=== PATIENT | female | born 1990 | race Caucasian/White ===

== ENCOUNTER 2019-08-01 18:58 | Outpatient (CLI) | payer OTHER, SELFPAY ==
[2019-08-01 19:34] LABS: Influenza Control Valid (Valid)
== END 2019-08-01 18:59 | disposition home or self-care (01) ==
LOC: CHSLAB 19:05
PROVIDERS: PCP Family Medicine; Visit Provider Family Medicine
DX: J02.9 Acute pharyngitis, unspecified (principal); R05 Cough
CPT/HCPCS: 87081; 87804; 87880

== ENCOUNTER 2020-01-10 09:38 | Emergency (ER) | payer OTHER, SELFPAY ==
--- NOTE | ~2020-01-10 | US_ITS ---
EXAMINATION: US pelvic complete w TV DATE: 01/10/2020 11:09 INDICATION: Pelvic pain and pressure, history of each ureter insertion TECHNIQUE: Multiple transabdominal and endovaginal sonographic images of the pelvis were obtained. COMPARISON: None. FINDINGS: The uterus measures 8.9 x 5.4 x 4.9 cm. The endometrial complex measures 7 mm. The right ov carleen measures 2.1 x 1.9 x 1.1 cm. The left ovary measures 2.8 x 1.3 x 1.6 cm. There is normal vascular flow in the ovaries. There is no free fluid in the pelvis. IMPRESSION: 1. No sonographic correlate for the patient's symptoms. Reviewed, dictated and finalized at location B.
--- NOTE | 2020-01-10 09:57 | ED.ABDPAIN ---
HPI - Abdominal Pain General Chief Complaint: Abdominal Pain Stated Complaint: abdominal Pain Time Seen by Provider: 01/10/20 09:57 Source: patient Mode of arrival: ambulatory Limitations: no limitations History of Present Illness HPI narrative: Patient is a 29-year-old who presents for evaluation of bilateral lower pelvic pain. Pain is reportedly sharp, stabbing in nature in the right and left lower pelvis. Patient states she started her menstrual cycle this morning but typically does not have painful cycles. She has a history of ectopic which was treated with medication and did not require any surgical intervention. Patient also has a history of Esher procedure 8 years ago at the [facility] [place]. Patient denies any recent pelvic trauma, recent intercourse, no history of sexually transmitted infection. No fever, chills, nausea vomiting or back pain. No dysuria. Related Data Allergies Allergy/AdvReac Type Severity Reaction Status Date / Time adhesive Allergy Severe RASH AND Verified 01/10/20 10:02 SWELLING WITH PLASTIC TAPE latex Allergy Unknown Hives Verified 01/10/20 10:02 Penicillins Allergy Unknown Hives Verified 01/10/20 10:02 Review of Systems Review of Systems: Narrative: CONSTITUTIONAL: Denies fever CARDIOVASCULAR: Denies chest pain RESPIRATORY: Denies cough or dyspnea. GASTROINTESTINAL: Denies abdominal pain, reports lower pelvic pain SKIN: Denies rash MUSCULOSKELETAL: Denies back pain NEUROLOGIC: Denies headache PMFSH Past Medical History Medical History Ectopic Encounter for Essure implantation Family History Family History (Updated 01/24/12 @ 10:49 by DOCTOR UNKNOWN) Other Asthma Diabetes mellitus Hypertension Social History Social History Alcohol intake: never Gender identity (if verbalized by the patient): Female Exam Narrative: Exam Narrative: GENERAL: Awake, alert, conversant HEAD: Normocephalic, atraumatic. EYES: PERRLA and EOMI. ENT: Nares clear, no rhinorrhea or epistaxis. Mucous membranes moist. NECK: Supple. CHEST: No respiratory distress, breathing even and non labored HEART: Regular rate, sinus rhythm ABDOMEN:Non distended, tender in left lower pelvis, right pelvis, no rebound, no guarding /Pelvic: Labia majora and minora normal without lesions. Vagina with scant blood. No cervical motion tenderness. No adnexal tenderness or fullness bilaterally. No mucoid or purulent discharge present. EXTREMITIES: Normal range of motion. No edema. SKIN: Warm, dry, no rash. NEURO:No focal deficits. Alert and oriented x3 Course Vital Signs Vital signs: Vital Signs Temperature 37.1 C 01/10/20 09:58 Pulse Rate 81 01/10/20 09:58 Respiratory Rate 17 01/10/20 09:58 Blood Pressure 124/79 01/10/20 09:58 Pulse Oximetry 100 01/10/20 09:58 Temperature 37.1 C 01/10/20 09:58 Pulse Rate 81 01/10/20 09:58 Respiratory Rate 17 01/10/20 09:58 Blood Pressure 124/79 01/10/20 09:58 Pulse Oximetry 100 01/10/20 09:58 MDM - Abdominal Pain MDM Narrative Medical decision making narrative: Patient presented with lower pelvic pain associated with her menstrual cycle. At the time of assessment, ABCs are intact and vital signs are stable. Most no focal right lower quadrant tenderness, right upper quadrant tenderness, no guarding or peritoneal signs on exam. No signs of appendicitis clinically as patient is afebrile, no tachycardia, negative McBurney's point tenderness. Laboratory results are reassuring. Urinalysis is not consistent with urinary tract infection. Pelvic ultrasound shows no evidence of ovarian torsion, ectopic or cysts. Patient felt improved following anti-inflammatory treatment. She decision-making occurred with patient repeat abdominal exam is quite benign. I offered her a CT scan to
[2020-01-10 09:58] VITALS: BP 124/79; PULSE 81; RESP 17; TEMP 37.1; O2SAT 100
[2020-01-10 10:02] LABS: Basophils Absolute Auto 0.1 K/mm3 (0.0-0.1); Basophils Percent Auto 0.6 % (0.2-1.2); Eosinophils Absolute Auto 0.1 K/mm3 (0-0.3); Eosinophils Percent Auto 1.2 % (0-4.4); Hematocrit 40.9 % (37.0-47.0); Hemoglobin 13.7 g/dL (12.0-15.0); Immature Granulocyte Absolute 0.02 K/mm3 (0.00-0.031); Immature Granulocyte Percent A 0.2 % (0-0.5); Lymphocytes Absolute Auto 2.14 K/mm3 (0.9-3.2); Mean Corpuscular HGB Conc 33.5 g/dl (32-36); Mean Corpuscular Hemoglobin 28.1 pg (26-34); Mean Corpuscular Volume 83.8 fl (80-100); Mean Platelet Volume 10.8 fl (7.4-10.4); Monocytes Absolute Auto 0.6 K/mm3 (0.1-0.6); Monocytes Percent Auto 6.6 % (2.6-8.5); Neutrophils Absolute Auto 6.4 K/mm3 (1.3-6.7); Neutrophils Percent Auto 68.4 % (45.5-73.1); Platelet Count Result 260 k/mm3 (150-375); Red Blood Count 4.88 M/mm3 (4.2-5.4); Red Cell Distribution Width 12.9 % (11.5-14.5); White Blood Count 9.3 K/mm3 (4.5-10.0)
[2020-01-10 10:09] LABS: Add Urine Microscopic? YES; Appearance Urine Clear (Clear); Bilirubin Urine Negative (Negative); Blood Urine 3+ (Negative); Color Urine Yellow (Yellow); Glucose Urine UA Negative (Negative); Ketones Urine Negative (Negative); Leukocyte Esterase Ur Negative LEU/UL (Negative); Mucus Urine Rare /lpf; Nitrate Urine Negative (Negative); Protein Urine Negative (Negative); RBC Urine >75 /hpf (0-2); Specific Grav Ur 1.024 (1.001-1.035); Squamous Epithelial Cell Urine Moderate /hpf (Few); Urobilinogen Urine Negative mg/dL (<2.0)
[2020-01-10 10:21] LABS: Alanine Aminotransferase 20 U/L (4-35); Albumin Level 4.2 g/dL (3.5-5.1); Alkaline Phosphatase 57 U/L (38-126); Anion Gap 7 mmol/L (8-16); Aspartate Amino Transferase 24 U/L (14-36); Bilirubin,Total 0.4 mg/dL (0.2-1.3); Blood Urea Nitrogen 14 mg/dL (7-17); Carbon Dioxide 23 mmol/L (22-30); Chloride 106 mmol/L (98-107); Estimated CRCL calculation 135 ml/min; Estimated Glomerular Filt Rate > 60; Glucose 103 mg/dL (65-105); Lipase 33 U/L (23-300); Potassium 4.4 mmol/L (3.4-5.0); Sodium 136 mmol/L (137-145)
[2020-01-10] MEDS: SODIUM CHLORIDE 0.9% IV 1,000 ML 999 ML IV CONT (11:05)
[2020-01-10 13:33] VITALS: BP 136/80; PULSE 88; RESP 16; O2SAT 98
== END 2020-01-10 13:00 | disposition home or self-care (01) ==
PROVIDERS: Emergency Provider Emergency Medicine
DX: R10.2 Pelvic and perineal pain (principal)
CPT/HCPCS: 36415; 76830; 76856; 80053; 81001; 81025; 83690; 85025; 96365; 99284; J0131; J1940; J7030

== ENCOUNTER 2020-06-19 10:13 | Outpatient (CLI) | payer OTHER, SELFPAY ==
[2020-06-19 11:32] LABS: Influenza Control Valid (Valid)
[2020-06-19 11:33] LABS: SARS-CoV-2 Ag Negative (Negative)
[2020-06-20 21:58] LABS: SARS-CoV-2 RNA PCR Negative
== END 2020-06-19 10:14 | disposition home or self-care (01) ==
LOC: CHSLAB 10:17
PROVIDERS: PCP Family Medicine; Visit Provider Family Medicine
DX: J00 Acute nasopharyngitis [common cold] (principal); Z20.822 Contact with and (suspected) exposure to COVID-19
CPT/HCPCS: 36415; 87426; 87804; C9803; U0003; U0005

== ENCOUNTER 2020-08-25 14:55 | Outpatient (CLI) | payer OTHER, SELFPAY ==
--- NOTE | ~2020-08-25 | XR_ITS ---
EXAMINATION: XR abdomen obstructive series EXAM DATE: 08/25/2020 16:05 INDICATION: N/V/D/constipation, diffuse abd pain. TECHNIQUE: Frontal upright projection of the upper abdomen, frontal projection of the lower abdomen f or interpretation. Comparison is made to prior examination from 08/22/2015. FINDINGS: Small amount of colonic stool and gas. No small bowel dilation, nonobstructive bowel gas pattern. There are no suspicious calcifications identified. There is no organomegaly suspected. The bones are unremarkable. There is no free intraperitoneal air. The lung bases are clear. Essur e closure devices. IMPRESSION: Unremarkable abdomen x-ray exam. Reviewed, dictated and finalized at location A.
[2020-08-25 15:11] LABS: Basophils Absolute Auto 0.04 K/mm3 (0.00-0.10); Basophils Percent Auto 0.5 % (0.0-1.0); Eosinophils Absolute Auto 0.07 K/mm3 (0.02-0.50); Eosinophils Percent Auto 0.8 % (1.0-6.0); Hematocrit 39.6 % (35.0-49.0); Immature Granulocyte Absolute 0.03 K/mm3 (0.00-0.00); Immature Granulocyte Percent A 0.4 % (0.0-0.0); Lymphocytes Absolute Auto 2.19 K/mm3 (1.10-4.50); Lymphocytes Percent Auto 26.2 % (18.0-42.0); Mean Corpuscular HGB Conc 32.8 g/dL (32.0-36.0); Mean Corpuscular Hemoglobin 27.6 pg (27.0-31.0); Mean Corpuscular Volume 84.1 fL (78.0-102.0); Mean Platelet Volume 10.1 fl (9.2-11.8); Monocytes Absolute Auto 0.49 K/mm3 (0.10-0.90); Monocytes Percent Auto 5.9 % (2.0-11.0); Neutrophils Absolute Auto 5.5 K/mm3 (1.7-7.2); Neutrophils Percent Auto 66.2 % (50.0-70.0); Platelet Count Result 269 K/mm3 (150-420); Red Blood Count 4.71 M/mm3 (4.20-5.40); Red Cell Distribution Width 12.5 % (11.6-14.4); White Blood Count 8.4 K/mm3 (4.8-10.8)
[2020-08-25 15:18] LABS: Add Urine Microscopic? YES; Appearance Urine Clear (Clear); Bilirubin Urine Negative (Negative); Blood Urine 3+ (Negative); Color Urine Yellow (Yellow); Glucose Urine UA Negative (Negative); Ketones Urine Negative (Negative); Leukocyte Esterase Ur Negative (Negative); Nitrate Urine Negative (Negative); Protein Urine Negative (Negative); Specific Grav Ur >= 1.030 (1.010-1.020); Urobilinogen Urine 0.2 mg/dL (0.2-1.0); pH Urine 5.5 (5.0-8.0)
[2020-08-25 15:25] LABS: Bacteria Urine 1+ /hpf; Mucus Urine Moderate /lpf; Squamous Epithelial Cell Urine Moderate /hpf (Few); WBC Urine None seen /hpf (0-3)
[2020-08-25 15:36] LABS: Alanine Aminotransferase 47 U/L (14-59); Albumin Level 3.3 g/dL (3.4-5.0); Alkaline Phosphatase 80 U/L (46-116); Amylase 30 U/L (25-115); Anion Gap 6 mmol/L (8-16); Aspartate Amino Transferase 20 U/L (15-37); Bilirubin,Total 0.4 mg/dL (0.00-1.00); Blood Urea Nitrogen 13 mg/dL (7-18); Carbon Dioxide 28 mmol/L (21-32); Chloride 103 mmol/L (98-108); Estimated Glomerular Filt Rate > 60; Glucose 94 mg/dL (70-99); Lipase 35 U/L (73-393); Osmolality Calculated 284 mOsm/kg (285-295); Potassium 3.8 mmol/L (3.5-5.1); Sodium 137 mmol/L (136-145)
[2020-08-25 15:57] LABS: Thyroid Stimulating Hormone < 0.01 uIU/mL (0.36-3.74)
[2020-08-25 16:29] LABS: Free T4 Free Thyroxine 1.94 ng/dL (0.76-1.46)
== END 2020-08-25 14:56 | disposition home or self-care (01) ==
LOC: CHSLAB 14:56
PROVIDERS: PCP Family Medicine; Visit Provider Family Medicine
DX: R10.9 Unspecified abdominal pain (principal); R94.6 Abnormal results of thyroid function studies
CPT/HCPCS: 36415; 74019; 80053; 81001; 82150; 83690; 84439; 84443; 85025

== ENCOUNTER 2020-08-29 07:43 | Outpatient (CLI) | payer OTHER, SELFPAY ==
--- NOTE | ~2020-08-29 | US_ITS ---
US abdomen complete EXAMINATION: US Abdomen Complete INDICATION: Abdominal pain PROCEDURE: Realtime High Resolution abdomen ultrasound. COMPARISON: No prior studies for comparison FINDINGS: Gallbladder within normal limits. No gallstones, pericholecystic fluid, gallbladder wall t hickening or biliary dilatation. Common bile duct measures 3 mm. Liver echotexture within normal limits without focal mass. Pancreas within normal limits. Pancreati c tail is obscured by bowel gas. Spleen is unremarkeable. Renal echotexture is within normal limits bilaterally without hydronephrosis, contour deforming mass. There is echogenic foci in the right kidn ey which may represent a nonobstructing stone measuring 4 mm. Right kidney measures 10.4 cm. Left kid cherry measures 10.4 cm. Visualized aspects of the aorta and IVC are within normal limits. Portal vein is patent. No sonograph ic Pagan's sign indicated by the technologist. IMPRESSION: 1: Echogenic focus measuring 4 mm of the right kidney, suspicious for nonobstructing renal stone. Reviewed, dictated and finalized at location B. IMPRESSION: 1: Echogenic focus measuring 4 mm of the right kidney, suspicious for nonobstru cting renal stone.
[2020-08-29 11:03] LABS: Free T4 Free Thyroxine 2.03 ng/dL (0.76-1.46)
[2020-08-29 11:22] LABS: Thyroid Stimulating Hormone < 0.01 uIU/mL (0.36-3.74)
[2020-09-02 07:24] LABS: Total Triiodothyronine (T3) 259.6 ng/dL (76-181)
[2020-09-02 11:54] LABS: T3 Reverse 27 ng/dL (8-25)
[2020-09-03 15:21] LABS: Thyroid Stimulating Immunoglob 266 % baseline (<140)
== END 2020-08-29 07:44 | disposition home or self-care (01) ==
PROVIDERS: PCP Family Medicine; Visit Provider Family Medicine
DX: E05.90 Thyrotoxicosis, unspecified without thyrotoxic crisis or storm (principal); R10.9 Unspecified abdominal pain
CPT/HCPCS: 36415; 76700; 84439; 84443; 84445; 84480; 84482

== ENCOUNTER 2020-09-05 15:11 | Outpatient (CLI) | payer OTHER, SELFPAY ==
--- NOTE | ~2020-09-05 | US_ITS ---
EXAMINATION: US soft tissue head and neck DATE: 09/05/2020 15:51 INDICATION: Thyrotoxicosis. TECHNIQUE: Multiple ultrasound images of the thyroid were obtained. COMPARISON: None. FINDINGS: The right thyroid lobe measures 5.3 x 1.9 x 1.7 cm. The left thyroid lobe measures 4.4 x 1.5 x 1.7 c m. There is diffusely heterogeneous echogenicity in the thyroid. No discrete nodule. Vascularity is increased in right thyroid lobe and normal in left thyroid lobe. IMPRESSION: 1. Heterogeneous thyroid, consistent with Graves disease versus chronic lymphocytic (Carmen) thyro iditis. Reviewed, dictated and finalized at location A. IMPRESSION: 1. Heterogeneous thyroid, consistent with Graves disease versus chronic lymphoc ytic (Carmen) thyroiditis.
== END 2020-09-05 15:12 | disposition home or self-care (01) ==
LOC: CHSLAB 15:13
PROVIDERS: PCP Family Medicine; Visit Provider Family Medicine
DX: E05.90 Thyrotoxicosis, unspecified without thyrotoxic crisis or storm (principal)
CPT/HCPCS: 76536

== ENCOUNTER 2020-09-15 08:38 | Outpatient (CLI) | payer OTHER, SELFPAY ==
--- NOTE | ~2020-09-15 | NM_ITS ---
EXAMINATION: NM thyroid scan w uptake DATE: 09/16/2020 09:03 INDICATION: Hyperthyroidism. COMPARISON: Ultrasound 09/05/2020 TECHNIQUE: 0.235 mCi I-[id number] was administered orally. Scintigraphic images of the thyroid gland were o btained at 24 hours. Thyroid uptake was calculated by the technologist. FINDINGS: The thyroid uptake is 48% (normal 10-30%). There is no focal area of decreased or increased activity to suggest hypofunctioning or hyperfunctioning nodule. IMPRESSION: 1. Increased 24-hour iodine uptake, consistent with Graves' disease. Reviewed, dictated and finalized at location A.
== END 2020-09-15 08:39 | disposition home or self-care (01) ==
LOC: CHSIMG 08:39
PROVIDERS: PCP Family Medicine; Visit Provider Family Medicine
DX: E03.9 Hypothyroidism, unspecified (principal)
CPT/HCPCS: 78014; A9516

== ENCOUNTER 2025-03-04 15:44 | Outpatient (CLI) | payer BC, SELFPAY ==
--- NOTE | ~2025-03-04 | XR_ITS ---
EXAMINATION: XR abdomen obstructive series, 03/04/2025 15:50 [employer] HISTORY: Constipation COMPARISON: No comparisons available. Technique: 3 view. Findings: Moderate fecal content, no dilated bowel loops No free air. No abnormal calcifications No acute osseous abnormality. Impression: 1. No acute abnormality. Reviewed, dictated and finalized at location P. [employer] Impression: 1. No acute abnormality.
--- OUTSIDE RECORDS SUMMARY | 2025-03-04 15:58 | XMS_ITS | Continuity of Care Document ---
Author Name [facility], [facility] Address [address] [place] [address] Organization Unknown Address [address] [place] [address] Medications No known medications Problems No known problems
== END 2025-03-04 15:45 | disposition home or self-care (01) ==
LOC: CHSIMG 15:47
PROVIDERS: PCP Family Medicine; Visit Provider Nurse Practitioner Family
DX: K59.00 Constipation, unspecified (principal)
CPT/HCPCS: 74019